=== PATIENT | female | born 1940 | race Caucasian/White ===

== ENCOUNTER 2018-01-12 08:24 | Emergency (ER) | payer MEDICARE ==
[~2018-01-12] VITALS: Ht 152.4 cm; Wt 59.0 kg
[2018-01-12 08:35] VITALS: BP_SYST 189
--- NOTE | 2018-01-12 08:35 | NUR ---
Pt to bed 3, placed in gown
--- NOTE | 2018-01-12 08:40 | NUR ---
Pt presents to ER c/o pain to L lower back that radiates down to her ankle and foot. Pt rates pain 7-8/10 on pain scale. Pt able to ambulate but slowly and with some assistance. Pt AOX4, denies any other complaints, speaking full sentences, no acute distress noted.
--- NOTE | 2018-01-12 08:55 | NUR ---
Dr. Abdul at bedside for evaluation
[2018-01-12] MEDS ORDERED: KETOROLAC TROMETHAMINE 30 MG VIAL IM ONE (09:00)
--- NOTE | 2018-01-12 09:30 | NUR ---
Patient transported to radiology via gurney, accompanied by rad staff.
--- NOTE | 2018-01-12 09:49 | NUR ---
Returned from radiology, back to [facility].
--- NOTE | 2018-01-12 10:35 | NUR ---
Dr. Abdul at bedside speaking to pt with assistance from Balaji SALDIVAR providing translation.
[2018-01-12 10:38] VITALS: BP_SYST 148
--- NOTE | 2018-01-12 10:38 | NUR ---
Patient given written and verbal discharge instructions and verbalizes understanding. ER MD discussed with patient the results and treatment provided. Patient in stable condition. ID arm band removed. Rx of Ibuprofen given. Patient educated on pain management and to follow up with PMD. Pain Scale 0/10. Opportunity for questions provided and answered. Medication side effect fact sheet provided.
== END 2018-01-12 10:38 | disposition home or self-care (01) ==
LOC: SED 08:24
DX: M54.17 Radiculopathy, lumbosacral region (principal); M51.36 Other intervertebral disc degeneration, lumbar region; M41.9 Scoliosis, unspecified; E11.9 Type 2 diabetes mellitus without complications; I10 Essential (primary) hypertension
CPT/HCPCS: 72110; 73502; 96372; 99284; J1885

== ENCOUNTER 2019-07-03 14:26 | Emergency (ER) | payer MEDICARE, BC ==
[~2019-07-03] VITALS: Ht 154.9 cm; Wt 56.2 kg
[2019-07-03 14:39] VITALS: BP_SYST 155
--- NOTE | 2019-07-03 14:50 | NUR ---
Patient to ER bed 1 to gown for evaluation. Side rails up. Report given to Javad WAHL.
--- NOTE | 2019-07-03 14:55 | NUR ---
ER Dr. Boston at bedside examining patient.
[2019-07-03 15:24] LABS: BASOPHILS # (AUTO) 0.1 K/uL (0.0-0.2); BASOPHILS % (AUTO) 0.7 % (0.0-2.0); EOSINOPHILS # (AUTO) 0.1 K/uL (0.0-0.4); EOSINOPHILS % (AUTO) 0.9 % (0.0-4.0); HEMATOCRIT 37.1 % (36-48); HEMOGLOBIN 12.6 g/dL (12.0-16.0); LYMPHOCYTES # (AUTO) 1.8 K/uL (1.0-5.5); LYMPHOCYTES % (AUTO) 18.8 % (20.5-51.5); MEAN CORPUSCULAR HEMOGLOBIN 30 pg (27-31); MEAN CORPUSCULAR HGB CONC 34 % (32-36); MEAN CORPUSCULAR VOLUME 87 fL (79.0-98.0); MONOCYTES # (AUTO) 0.8 K/uL (0.0-1.0); MONOCYTES % (AUTO) 7.9 % (1.7-9.3); NEUTROPHILS # (AUTO) 6.9 K/uL (1.8-7.7); NEUTROPHILS % (AUTO) 71.7 % (40.0-70.0); PLATELET COUNT (AUTO) 130 K/uL (130-430); RED BLOOD CELL COUNT(AUTO) 4.26 MIL/uL (4.2-6.2); RED CELL DISTRIBUTION WIDTH 13.9 % (9.0-15.0); WHITE BLOOD COUNT (AUTO) 9.6 K/uL (4.8-10.8)
[2019-07-03] MEDS ORDERED: ATOR10TA68 PO (15:31)
[2019-07-03] MEDS ORDERED: HYDR25TA4 PO (15:31)
[2019-07-03] MEDS ORDERED: MEMA10TA PO (15:31)
[2019-07-03] MEDS ORDERED: DONE10TA44 PO (15:31)
[2019-07-03] MEDS ORDERED: XALEYE BOTH EYES (15:31)
[2019-07-03] MEDS ORDERED: LIDOCAINE 5% PATCH TD (15:31)
[2019-07-03] MEDS ORDERED: BENA40TA8 PO (15:31)
[2019-07-03] MEDS ORDERED: GABA-529 PO (15:31)
--- NOTE | 2019-07-03 15:31 | NUR ---
Medication reconciliation completed with information provided by PATIENT'S FAMILY MEMBER WRITTEN LIST. Any prior medication reconciliation on file was reviewed and corrected.
[2019-07-03 15:35] LABS: ANION GAP 5 (5-15); CALCIUM 8.8 mg/dL (8.4-11.0); CHLORIDE 99 mmol/L (98-107); CREATININE 0.76 mg/dL (0.55-1.30); GLUCOSE 127 mg/dL (70-99); POTASSIUM 3.8 mmol/L (3.5-5.1); SODIUM SERUM 134 mmol/L (136-145); UREA NITROGEN, BLOOD 28 mg/dL (8-21)
[2019-07-03 15:40] LABS: ALANINE AMINOTRANSFERASE 29 U/L (12-78); ALBUMIN 3.8 g/dL (3.4-4.8); ASPARTATE AMINOTRANSFERASE 22 U/L (10-37); LIPASE 140 U/L (73-393); TOTAL BILIRUBIN 0.4 mg/dL (0.0-1.0)
[2019-07-03 16:13] LABS: PROTHROMBIN TIME 10.5 SECS (9.5-12.5)
[2019-07-03 16:24] LABS: BILIRUBIN,URINE NEGATIVE (NEGATIVE); BLOOD, URINE NEGATIVE (NEGATIVE); CLARITY/URINE CLEAR (CLEAR); COLOR,URINE YELLOW (YELLOW); GLUCOSE,URINE NEGATIVE (NEGATIVE); KETONES,URINE NEGATIVE (NEGATIVE); LEUKOCYTE ESTERASE ,URINE TRACE (NEGATIVE); NITRITE, URINE NEGATIVE (NEGATIVE); PH,URINE 6.5 (5.0-8.0); PROTEIN URINE NEGATIVE (NEGATIVE); UROBILINOGEN,URINE 0.2 (0.2-1.0)
[2019-07-03 16:54] LABS: BACTERIA,URINE FEW /HPF (None Seen); RBC,URINE 0-3 /HPF (0-3)
[2019-07-03 16:55] LABS: MUCUS,URINE None Seen /LPF (None Seen)
[2019-07-03] MEDS ORDERED: cefTRIAXone 1 GM IVPB PREMIX 50 ML IV ONE (17:30)
[2019-07-03 18:31] VITALS: BP_SYST 168
--- NOTE | 2019-07-03 18:31 | NUR ---
Patient given written and verbal discharge instructions and verbalizes understanding. ER MD discussed with patient the results and treatment provided. Patient in stable condition. ID arm band removed. IV catheter removed intact and dressing applied, no active bleeding. Rx of cipro and tylenol given. Patient educated on pain management and to follow up with PMD. Pain Scale 3/10. MD is aware. Opportunity for questions provided and answered. Medication side effect fact sheet provided.
--- NOTE | 2019-07-04 12:34 | NUR ---
RECEIVED DISCREPTANCY FROM RADIOLOGY, DISCUSSED CASE WITH DR GOETZ, DR GOETZ CALLED PT AND PT RETURNED CALL. DR GOETZ SPOKE WITH PT ABOUT GETTING FOLLOW UP CARE FOR NODULE IN LUNG. PT STATES SHE UNDERSTANDS AND WILL DO SO.
== END 2019-07-03 18:31 | disposition home or self-care (01) ==
LOC: SED 14:26
DX: N39.0 Urinary tract infection, site not specified (principal); G93.89 Other specified disorders of brain; E78.5 Hyperlipidemia, unspecified; F32.9 Major depressive disorder, single episode, unspecified; F03.90 Unspecified dementia, unspecified severity, without behavioral disturbance, psychotic disturbance, mood disturbance, and anxiety; Z79.899 Other long term (current) drug therapy
CPT/HCPCS: 36415; 70450; 74176; 80053; 81000; 83690; 85025; 85610; 85730; 87086; 96365; 99284; J0696